=== PATIENT | female | born 2000 | race African-American/Black ===

== ENCOUNTER 2024-03-21 16:50 | Emergency (ER) | payer OTHER, BC, SELFPAY ==
[2024-03-21 17:57] VITALS: BP 135/87; PULSE 101; RESP 18; TEMP 37.1; O2SAT 100; BMI 27.8
--- NOTE | 2024-03-21 17:57 | ED.FEMALEGU ---
HPI - Female Genitourinary General Chief complaint: Urogenital-Female Stated complaint: ?UTI/Bleeding Time Seen by Provider: 03/21/24 20:53 Source: patient Mode of arrival: ambulatory Limitations: no limitations History of Present Illness ED Provider: Emelyn Barajas PA-C HPI Narrative: 23 yo female presents to the ER for evaluation of dysuria that stated yesterday and new onset hematuria that started today. LMP 2.5 weeks ago. No N/V/D, fever, chills. = she reports lower back pain but no flank pain. No history of kidney stones in the past. Not sexually active, denies any vaginal discharge or concern for STI. She denies any abdominal pain aside from some suprapubic pain that started yesterday, improved today. MD elicited complaint: other (Dysuria hematuria) Onset (ago): day(s) (1) Location of symptoms: suprapubic and urethra Severity: moderate Female Urogenital Radiation: Non-Radiating Quality of pain: burning Consistency: intermittent Vaginal discharge: none Vaginal bleeding: none Urinary symptoms: Dysuria, Urgency, Frequency and Hematuria Exacerbating factors: urination Relieving factors: none Associated symptoms: denies other symptoms Sexual activity: No Patient : No Related Data Previous Rx's ?Medication ?Instructions ?Recorded cefuroxime axetil 250 mg tablet 250 mg PO BID 7 days #14 tabs 03/21/24 Allergies Allergy/AdvReac Type Severity Reaction Status Date / Time No Known Allergies Allergy Verified 03/21/24 18:00 Review of Systems Review of Systems: Yes all other systems are reviewed and are negative PMFSH Social History Social History Advance Directives: No Advance Directives Information Provided: No Physical Exam Vital Signs: Vital Signs: Last Vital Signs Temp 98.7 F 03/21/24 17:57 Pulse 101 H 03/21/24 17:57 Resp 18 03/21/24 17:57 BP 135/87 03/21/24 17:57 Pulse Ox 100 03/21/24 17:57 O2 Del Method Room Air 03/21/24 17:57 BMI result Body Mass Index 27.8 Appearance: Alert. Oriented X3. No acute distress. Head: normocephalic, atraumatic. Eyes: Pupils equal, round and reactive to light. ENT: Pharynx normal. moist mucus membranes Neck: Normal inspection. CVS: Normal heart rate and rhythm. Pulses normal. Respiratory: No respiratory distress. Breath sounds normal. Abdomen: Soft and nontender. +BS x4. No CVA tenderness. Skin: Skin warm and dry. Normal skin color. Normal skin turgor. No rashes. Extremities: No lower extremity edema. No joint swelling. Neuro/psych: Oriented X 3. grossly nonfocal Course Course Course Narrative: This is a Rapid Medical Examination (RME) performed by Emelyn Barajas PA-C in triage. Full HPI, ROS, assessment and treatment plan per primary provider in the Main ED. 23 yo female presents to the ER for evaluation of dysuria that stated yesterday and new onset hematuria that started today. LMP 2.5 weeks ago. No N/V/D, fever, chills. appears well. Plan: UA, Upreg Medications Administered Discontinued Medications Generic Name Dose Route Start Last Admin Trade Name Freq PRN Reason Stop Dose Admin Cefuroxime Axetil 250 mg 03/21/24 20:54 03/21/24 21:17 Cefuroxime Axetil 250 Mg Tablet PO 03/21/24 20:55 250 mg ONCE ONE Administration Medical Decision Making Medical Decision Making [facility] Narrative: 23 yo female presents to the ER for evaluation of dysuria that started yesterday and hematuria that started today. low back pain bilaterally but no flank pain and no cva tenderness on exam. VSS and patient appears well. UA is showing infection w/ large LE, >50 WBC. yellow urine. will treat with po abx x1 week. stable for d/c home. return precautions discussed. Differential Diagnosis Differential Diagnoses: The differential diagnosis associated with the presentation includes UTI, pyelonephritis, kidney stones, bladder mass, STI, Lab Data [facility] Lab Attestation statement: I reviewed the patient's lab results. positive for infection Labs: Lab Results 03/21/24 Range/Units 19:43 Urine Color Yellow Urine Appearance Clear Urine pH 6.5 (5.0-9.0) Ur Specific [place] <= 1.005 (1.005-1.025) Urine Protein Negative (Neg-Trace) mg/dL Urine Glucose (UA) Negative (Negative) mg/dL Urine Ketones Negative (Negative) mg/dL Urine Blood Large (3+) H (Negative) Urine Nitrite Negative (Negative) Ur Leukocyte Esterase Large (3+) H (Negative) Urine RBC 0-2 (0-2) /HPF Urine WBC >50 H (0-5) /HPF Ur Squamous Epith Cells 0-2 (0-2) /HPF Urine Bacteria None Seen (None Seen) Hyaline Casts 0-2 (0-2) /LPF Urine Test NEGATIVE (NEGATIVE) Tests considered The following testing was considered but not selected: considered lab workup and CT scan for evaluation of hematuria Prescription Management I considered prescription management with: Pain Medication and Antibiotic Critical Care Time Critical Care Time Critical Care Time: No Discharge Plan Discharge Clinical Impression: Urinary tract infection Patient Disposition: Home, Self-Care Instructions: Urinary Tract Infection in Women (DC) Additional Instructions: Your urine test showed evidence of a urinary tract infection and traces of blood. This is likely due to the infection. Take the prescribed antibiotics as directed, complete the entire course and do not miss any doses. Start the antibiotics tonight. They were sent to the [facility] at [address] [place] [address] in [place] Drink plenty of fluids. Take Tylenol and Motrin as needed for pain If you develop new or worsening symptoms call 911 or come back to the ER for further evaluation. Prescriptions: New cefuroxime axetil 250 mg tablet 250 mg PO BID 7 Days Qty: 14 0RF Stand Alone Forms: Work/School Release Discharge Date/Time: 03/21/24 21:15 Print Language: Welsh
[2024-03-21 19:57] LABS: Appearance Urine Clear; Color Urine Yellow; Glucose Urine UA Negative (Negative); Leukocyte Esterase Urine Large (3+) (Negative); Nitrite Urine Negative (Negative); PH 6.5 (5.0-9.0); Specific Gravity - Urine <= 1.005 (1.005-1.025); UMIC TRIGGER UACC YES; Urine Blood Large (3+) (Negative); Urine Ketones Negative (Negative); Urine Protein Negative (Neg-Trace)
[2024-03-21 20:06] LABS: Bacteria Urine None Seen (None Seen); Hyaline Casts Urine 0-2 /LPF (0-2); RBC Urine 0-2 /HPF (0-2); Squamous Epithelial Cell Urine 0-2 /HPF (0-2); UACC Culture Trigger YES; WBC Urine >50 /HPF (0-5)
[2024-03-21 20:07] LABS: UPreg QC Valid YES; Urine Pregnancy NEGATIVE (NEGATIVE)
[2024-03-21] MEDS: cefuroxime axetiL 250 MG TABLET PO (21:17)
== END 2024-03-21 21:15 | disposition home or self-care (01) ==
PROVIDERS: Physician Assistant; Emergency Provider Emergency Medicine
DX: N39.0 Urinary tract infection, site not specified (principal); R30.0 Dysuria; R31.9 Hematuria, unspecified; R35.0 Frequency of micturition; Z79.899 Other long term (current) drug therapy
CPT/HCPCS: 81001; 81025; 87086; 99282; 99283